=== PATIENT | female | born 1995 | race Caucasian/White ===

== ENCOUNTER 2017-06-18 09:58 | Observation (INO) | payer OTHER ==
[2017-06-09 14:58] VITALS: BMI 22.0
--- NOTE | 2017-06-09 15:23 | PAT Medication Instructions ---
Service Date Jun 09, 2017. Current Home Medication List Lorazepam (Ativan), 0.5 MG PO PRN Meclizine HCl (Meclizine HCl), 1 TAB PO Q8 PRN for Dizziness or Vertigo Medication Instructions For Your Scheduled Surgery - Take the following medications the morning of surgery with a sip of water: Lorazepam (Ativan), 0.5 MG PO PRN (if needed) Meclizine HCl (Meclizine HCl), 1 TAB PO Q8 PRN for Dizziness or Vertigo (if needed) - Take the following medications as scheduled the night before surgery: Lorazepam (Ativan), 0.5 MG PO PRN (if needed) Meclizine HCl (Meclizine HCl), 1 TAB PO Q8 PRN for Dizziness or Vertigo (if needed) If you have any questions please call us at [phone] or [phone] or [phone]
[2017-06-09 16:07] LABS: BASO % 0.6 %; BASO ABS # 0.06 K/uL (0-0.2); COMPLETE YES; EOS % 0.8 %; IG% 0.3 %; LYMPH ABS # 2.11 K/uL (1.2-3.4); MEAN CORPUSCULAR HEMOGLOBIN 28.8 pg (25-34); MEAN CORPUSCULAR HGB CONC 34.3 g/dl (32-36); MEAN PLATELET VOLUME 9.4 fL (7.4-10.4); MONO % 9.5 %; NEUT % 68.8 %; PLATELET COUNT 352 K/uL (130-400); RED BLOOD COUNT 5.24 M/uL (4.2-5.4); WHITE BLOOD COUNT 10.53 K/uL (4.8-10.8)
[2017-06-09 16:12] LABS: CALCIUM 9.5 mg/dl (8.5-10.1); CREATININE 0.74 mg/dl (0.60-1.20); POTASSIUM 3.8 mmol/L (3.5-5.1)
[2017-06-09 16:21] LABS: PARTIAL THROMBOPLASTIN RATIO 1.1; PROTHROMBIN TIME (PATIENT) 10.7 SECONDS (9.0-12.0)
[~2017-06-18] VITALS: Ht 160 cm; Wt 58.4 kg
[2017-06-18] VITALS (7 sets, daily range): BP systolic 106–124; BP diastolic 67–75; PULSE 79–99; TEMP 36.9–37.4; O2SAT 97–100; Ht 160 cm; Wt 58.4 kg
[~2017-06-18 09:58] MED LIST: ANT25 PO; CLINDAMYCIN 600 MG/54 ML D5W IV SCH; LACTATED RINGER'S 1000ML 1,000 ML IV SCH; LORA-741 PO
[2017-06-18] MEDS ORDERED: EpHEDrine SULFATE INJ 50 MG/ML AMP IV PRN (10:45)
[2017-06-18] MEDS ORDERED: FENTANYL CITRATE INJ 50 MCG/1 ML 2 ML VIAL IV PRN (10:45)
[2017-06-18] MEDS ORDERED: ONDANSETRON INJ 2 MG/ML 2 ML VIAL IV PRN ×2 (10:45→17:45)
[2017-06-18] MEDS ORDERED: PROMETHAZINE HCL INJ 12.5 MG in SODIUM CHLORIDE 0.9% 50ML 50 ML IV PRN ×2 (10:45→17:45)
[2017-06-18] MEDS ORDERED: ATROPINE SULFATE 0.1 MG/ML 5ML SYR IV PRN (10:45)
[2017-06-18] MEDS ORDERED: HYDROmorphone INJ 1 MG/ML SYR IV PRN (10:45)
--- NOTE | 2017-06-18 12:52 | History & Physical Bridge Note ---
H&P Re-Evaluation Bridge Note: I have examined the patient, reviewed the History & Physical and in the interval since the performance of the History & Physical I have noted the following changes of clinical significance: Patient thought she possibly had a vaginal yeast infection yesterday; symptoms resolved.
[2017-06-18] MEDS ORDERED: LIDOCAINE/EPINEPHRINE 1% 20 ML VIAL ONE (12:53)
[2017-06-18] MEDS ORDERED: BUPIVACAINE 0.25% 30 ML VIAL ONE (12:53)
[2017-06-18] MEDS ORDERED: GLYCOPYRROLATE INJ 0.2 MG/ML VIAL ONE (12:59)
[2017-06-18] MEDS ORDERED: ONDANSETRON INJ 2 MG/ML 2 ML VIAL ONE (12:59)
[2017-06-18] MEDS ORDERED: MIDAZOLAM HCL 1 MG/ML 2ML VIAL ONE (12:59)
[2017-06-18] MEDS ORDERED: NEOSTIGMINE METHYLSULFATE 5 MG/5 ML SYR ONE (12:59)
[2017-06-18] MEDS ORDERED: DEXAMETHASONE SOD INJ 4 MG/ML VIAL ONE (12:59)
[2017-06-18] MEDS ORDERED: PROPOFOL IV EMULSION 10 MG/ML 20 ML VIAL IV ONE (12:59)
[2017-06-18] MEDS ORDERED: FENTANYL CITRATE INJ 50 MCG/1 ML 2 ML VIAL ONE ×2 (12:59→18:04)
[2017-06-18] MEDS ORDERED: LIDOCAINE HCL 2% 2 ML VIAL (20MG/ML) ONE (12:59)
[2017-06-18] MEDS ORDERED: ROCURONIUM BROMIDE 10 MG/ML 5 ML VIAL ONE (12:59)
[2017-06-18] MEDS ORDERED: SCOPOLAMINE 1.5 MG TDSY TD ONE (13:08)
[2017-06-18] MEDS ORDERED: HYDROmorphone INJ 2 MG/ML SYR/VIAL ONE (13:46)
[2017-06-18] MEDS ORDERED: ACETAMINOPHEN 1000 MG/100 ML IV IV ONE (15:24)
--- NOTE | 2017-06-18 17:30 | [facility] Post Operative Brief Note ---
Immediate Operative Summary Operative Date Jun 18, 2017. Pre-Operative Diagnosis Bilateral Symptomatic Macromastia Post-Operative Diagnosis Same as preoperative Procedure(s) Performed Bilateral Breast Reduction Surgeon Dr. Kelly Arzate Guitar Repair Technician Surgeon(s) None per surgeon Estimated Blood Loss 50ml Findings bilateral NACs pink and viable Specimens A. left breast tissue (386g) sent fresh B. right breast tissue (482g) sent fresh Drains NAIN x2 Anesthesia GET Complication(s) None Disposition Recovery Room / PACU
[2017-06-18] MEDS ORDERED: ACETAMINOPHEN 325 MG TAB PO PRN (17:45)
[2017-06-18] MEDS ORDERED: DiphenhydrAMINE HCL 50 MG/ML VIAL IV PRN (17:45)
[2017-06-18] MEDS ORDERED: OXYCODONE/ACETAMINOPHEN 5-325 TAB PO PRN ×2 (17:45)
[2017-06-18] MEDS ORDERED: MoRPHine SULFATE 2 MG/ML CARP IV PRN ×2 (17:45)
[2017-06-18] MEDS ORDERED: MECLIZINE HCL 25 MG TAB PO PRN (17:45)
[2017-06-18] MEDS ORDERED: OXAZEPAM 10MG CAP PO PRN (17:45)
[2017-06-18] MEDS ORDERED: MoRPHine SULFATE 4 MG/ML 1 ML CARP\\VIAL IV PRN (17:45)
--- NOTE | 2017-06-18 18:24 | Anesthesiology Progress Note ---
Anesthesia Post Op Note Date & Time Jun 18, 2017 at 18:24 Vital Signs Pain Intensity: 2 Vital Signs Past 12 Hours Date Time Temp Pulse Resp B/P (MAP) Pulse Ox O2 Delivery O2 Flow Rate FiO2 06/18/17 18:10 83 17 124/84 100 Oxymask 3 06/18/17 18:00 86 16 125/81 100 Oxymask 10 06/18/17 17:50 36.9 106 16 131/82 100 Oxymask 10 06/18/17 10:15 36.9 79 18 116/73 (87) 100 Room Air Notes Mental Status: alert / awake / arousable, participated in evaluation Pt Amnestic to Procedure: Yes Nausea / Vomiting: adequately controlled Pain: adequately controlled Airway Patency, RR, SpO2: stable & adequate BP & HR: stable & adequate Hydration State: stable & adequate Anesthetic Complications: no major complications apparent
[2017-06-18] MEDS ORDERED: IV FLUIDS COMPLETED PRN (19:00)
[2017-06-18] MEDS ORDERED: LORAZEPAM 0.5 MG TAB PO PRN ×2 (19:30→19:45)
[2017-06-18] MEDS: D5W AND 1/2NSS + 20MEQ KCL 1,000 ML IV SCH (19:59)
[2017-06-18] MEDS: CEFAZOLIN IV 1,000 MG in DEXTROSE 5% 50ML 50 ML IV SCH (22:09)
[2017-06-19 03:50] VITALS: BP 99/62; PULSE 68; TEMP 36.8; O2SAT 99
[2017-06-19] MEDS: D5W AND 1/2NSS + 20MEQ KCL 1,000 ML IV SCH (04:15)
[2017-06-19] MEDS: CEFAZOLIN IV 1,000 MG in DEXTROSE 5% 50ML 50 ML IV SCH (05:44)
[2017-06-19] MEDS ORDERED: FLUC150T PO (06:58)
--- NOTE | 2017-06-19 07:00 | Discharge Instructions ---
Discharge Instructions Date of Service Jun 19, 2017. Admission Reason for Admission: Bilateral Symptomatic Macromastia Discharge Discharge Diagnosis / Problem: breast hypertrophy Discharge Goals Goal(s): Decrease discomfort, Improve function Activity Recommendations Activity Limitations: as noted below . Instructions / Follow-Up Instructions / Follow-Up ACTIVITY RECOMMENDATIONS: __Normal activities _x_No bending, lifting or straining __No driving _x_Driving allowed when you are off pain medications _x_Walking permitted __You should have help at home for ___ days DRESSINGS: __No dressings required _x_Keep dressings dry/in place until first office visit __Remove dressings ___ and leave dressings off __Apply ice ___ days __Remove dressings and reapply garment __Apply antibiotic ointment (Bacitracin, Neosporin, etc) to wounds 3-4 times/ day for 10 days BATHING: _x_Keep dressings dry _x_Sponge bathing permitted __Showering permitted _x_No swimming, hot tubs or soaking in a tub MEDICATIONS: Resume previous medications unless instructed otherwise by your surgeon. _x_Do not use aspirin, Motrin, Advil or Ibuprofen as these may promote bleeding. Please use Tylenol. _x_Prescription(s) provided: Diflucan; pain med script provided preop in office OTHER INSTRUCTIONS: __Record drain output 2-3 times per day SPECIAL CARE INSTRUCTIONS: * It is normal to have a mild fever after surgery. If your temperature is higher than 101.5 degrees F, please call the office at [phone]. * Constipation is a typical side effect of pain medication. An over-the- counter stool softener will help relieve this. * Leaking around surgical drains may occur and should not cause concern. Sometimes these drains become clogged. If this happens, remove the bulb and milk the clot out of the tube, then replace the bulb. * Drainage from wounds after liposuction is normal and should be expected. Garments will become soiled. You should protect furniture and bedding. This drainage should mostly subside within 2-3 days. Leave garments in place unless instructed to remove them. * If you have unusual drainage from a wound or are concerned you have an infection or have any questions or concerns, please call the office at [phone]. FOLLOW UP VISIT: If not already scheduled, please call the office, , when you return home after surgery to schedule an appointment to be seen in __1_ days. Current Hospital Diet Patient's current hospital diet: Regular Diet Discharge Diet Recommended Diet: Regular Diet Procedures Procedures Performed: Bilateral Breast Reduction Pending Studies Studies pending at discharge: no Medical Emergencies . Who to Call and When: Medical Emergencies: If at any time you feel your situation is an emergency, please call 911 immediately. . Non-Emergent Contact Non-Emergency issues call your: Primary Care Provider, Surgeon (for any concerns related to procedure) Call Non-Emergent contact if: temperature is above 101.5 . "Provider Documentation" section prepared by Kelly Arzate. . VTE Core Measure Inpt VTE Proph given/why not?: Enoxaparin (Lovenox) [place] Drug Monitoring Program Search Results: patient reviewed within database, no issues identified
--- NOTE | 2017-06-19 07:21 | Progress Note ---
Progress Note Date of Service Jun 19, 2017. Progress Note POD #1 Doing well. Pain controlled. afebrile VSS Dressings c/d/i NACs pink and viable bilaterally, sensation intact no hematomas JPs 45/ serosanguinous Plan for discharge today drains removed instructions given follow up in office tomorrow
[2017-06-19 07:23] VITALS: BP 95/65; PULSE 62; TEMP 37.5; O2SAT 98
[2017-06-19 07:29] VITALS: BP 95/65; PULSE 62; TEMP 37.5; O2SAT 98
[2017-06-19] MEDS ORDERED: ENOXAPARIN 40 MG/0.4 ML SYR SQ SCH (09:00)
[2017-06-19] MEDS ORDERED: MULTIVITAMIN TAB PO SCH (09:00)
--- NOTE | 2017-06-19 09:08 | OPERATIVE REPORT ---
DATE OF OPERATION: 06/18/2017 PREOPERATIVE DIAGNOSIS: Bilateral symptomatic macromastia. POSTOPERATIVE DIAGNOSIS: Same. PROCEDURE: Bilateral breast reduction. SURGEON: Dr. Kelly Arzate. AERIAL PLANTING AND CULTIVATION MANAGER: None. ANESTHESIA: General. COMPLICATIONS: None. INDICATION FOR THE PROCEDURE: The patient is a 21-year-old female who presented to my office with complaints of back, neck and shoulder pain as well as headaches and shoulder grooving and rashes under her breasts, which failed to respond to conservative therapy. After discussion, she elected to proceed with bilateral reduction mammoplasty. BRIEF DESCRIPTION OF THE PROCEDURE: The risks, benefits and alternatives of the procedure were explained to the patient, who agreed and signed consent. She was identified and marked in the holding area. She was brought to the operating room, where she was positioned supine and placed under general anesthesia without incident. Surgical site was prepped and draped sterilely. A time-out procedure was performed. I began with the left side, which was the smaller of the 2 breasts. Markings were reassessed and a 7-cm pedicle was marked. 1% lidocaine with epinephrine was used to anesthetize the planned incisions. A 38-mm cookie cutter was used to circumscribe the nipple-areolar complex. The previously marked 7-cm pedicle was incised using a 15 blade scalpel and deepithelialized. I began with the medial dissection of the pedicle using electrocautery. Cautery was used to incise through dermis and breast parenchyma down the chest wall, taking care not to undermine the pedicle during dissection. A similar procedure was undertaken on the lateral aspect of the pedicle again taking care not to undermine. Lastly, the pedicle was dissected out superiorly using electrocautery. This was carried down to the chest wall. I then began excision of the medial breast tissue followed by lateral aspect of the breast tissue. A 15 blade scalpel was used to make the inframammary fold incision and electrocautery was used to deepen the incision through dermis and breast parenchyma. Dissection was then carried superiorly to the level of the superior incision. Superior incision was then incised using a 15 blade scalpel and again dissected using electrocautery. A similar procedure was undertaken laterally and then around the keyhole portion of the incision. Care was taken to leave some fat on the lateral pectoralis fascia in order to protect the T4 intercostal nerve. Hemostasis was achieved with electrocautery. Specimen was removed in its entirety and passed off for weighing. Additional resection was undertaken until maximal resection weight of 386 grams was achieved on the left side and there was uniform pedicle and flap. The wound was irrigated with normal saline. Hemostasis was achieved with electrocautery. 0.25% Marcaine plain was used to anesthetize the incisions as well as the pectoralis fascia. A 15-[place] Farooq drain was brought out through a separate stab incision. The nipple-areolar complex was advanced into the keyhole using 2-0 Vicryl deep dermal suture. The wound was closed first in a lateral to mid breast direction using 2-0 Vicryl deep dermals and then medial to mid breast using 2-0 Vicryl deep dermals. The vertical limb was also approximated using 2-0 Vicryl deep dermal sutures. The nipple-areolar complex was inset using 2-0 Vicryl deep dermals. Next, the superficial dermal layer was closed using 2-0 PDO running Quill suture along the inframammary fold and 3-0 PDS interrupted dermal sutures for the vertical limb and nipple-areolar complex closures. Lastly, 3-0 Monocryl running subcuticular suture was placed. A similar procedure was undertaken on the larger right side with maximal resection weight of 482 grams. At the end of the case, both nipple-areolar complexes were pink and viable without evidence of vascular compromise. The breasts appeared reasonably symmetric. Dermabond Prineo was applied along the inframammary fold and vertical limb and Dermabond was placed around the nipple-areolar complex. Following this, dry dressings and a surgical bra were placed. The patient was awakened and transferred to recovery room in satisfactory condition. I attest to the content of the Intraoperative Record and any orders documented therein. Any exception s are noted below.
--- NOTE | 2017-06-19 09:36 | Anesthesiology Progress Note ---
Anesthesia Post Op Note Date & Time Jun 19, 2017 at 09:36 Vital Signs Pain Intensity: 0.0 Vital Signs Past 12 Hours Date Time Temp Pulse Resp B/P (MAP) Pulse Ox O2 Delivery O2 Flow Rate FiO2 06/19/17 07:29 37.5 62 18 98 Room Air 06/19/17 07:23 37.5 62 18 95/65 (75) 98 Room Air 06/19/17 03:50 36.8 68 16 99/62 (74) 99 Room Air 06/18/17 23:35 Room Air 06/18/17 22:48 37.2 93 16 109/71 (84) 97 Room Air 06/18/17 21:46 37.2 99 18 119/75 (90) 97 Room Air Notes Mental Status: alert / awake / arousable, participated in evaluation Pt Amnestic to Procedure: Yes Nausea / Vomiting: adequately controlled Pain: adequately controlled Airway Patency, RR, SpO2: stable & adequate BP & HR: stable & adequate Hydration State: stable & adequate Anesthetic Complications: no major complications apparent
--- NOTE | 2017-06-19 09:45 | DISCHARGE SUMMARY ---
DATE OF DISCHARGE: 06/19/2017. ADMISSION DIAGNOSIS: Bilateral symptomatic macromastia. DISCHARGE DIAGNOSIS: Bilateral symptomatic macromastia. PROCEDURES: The patient underwent bilateral reduction mammoplasty with inferior pedicle technique on 06/18/2017. HOSPITAL COURSE: The patient was admitted for observation following a routine elective bilateral reduction mammoplasty. Postoperative course was uneventful. Pain was well controlled. At the time of discharge vital signs were stable. Breasts were soft without evidence of hematoma and nipple areolar complexes were pink and viable. She was discharged home with a prescription for Percocet which had been written in the office preoperatively as well as a prescription for Diflucan should she develop yeast infection from perioperative antibiotics. She will follow up in the office as scheduled on 06/20/2017. Both written and verbal discharge instructions were provided to the patient who expressed understanding.
== END 2017-06-19 10:30 | disposition home or self-care (01) ==
LOC: C.ACU 09:58 → C.MSW 10:10 → ENRESERV 18:32
PROVIDERS: ADMIT Plastic Surgery; ATTEND Plastic Surgery
DX: N62 Hypertrophy of breast (principal); H81.10 Benign paroxysmal vertigo, unspecified ear; Z97.5 Presence of (intrauterine) contraceptive device; Z83.49 Family history of other endocrine, nutritional and metabolic diseases; Z82.49 Family history of ischemic heart disease and other diseases of the circulatory system; Z80.42 Family history of malignant neoplasm of prostate

== ENCOUNTER → 2017-08-25 | Outpatient (CLI) | payer OTHER ==
[~2017-08-25] MED LIST changes: -CLINDAMYCIN 600 MG/54 ML D5W IV SCH; -LACTATED RINGER'S 1000ML 1,000 ML IV SCH
[2017-08-28 00:34] LABS: CHLAMYDIA TRACH RNA*** NOT DETECTED (NOT DETECTED); GC (NEIS GONORRHOEAE)RNA** NOT DETECTED (NOT DETECTED)
== END | disposition home or self-care (01) ==
LOC: C.LAB1850 16:39
PROVIDERS: ATTEND Obstetrics & Gynecology
DX: Z20.2 Contact with and (suspected) exposure to infections with a predominantly sexual mode of transmission (principal)